=== PATIENT | male | born 1995 | race Caucasian/White ===

== ENCOUNTER 2017-04-30 10:18 | Emergency (ER) | payer OTHER ==
[~2017-04-30] VITALS: Ht 182.9 cm; Wt 145.1 kg
--- NOTE | 2017-04-30 12:09 | PHYS DOC ---
Past History Past Medical History: No Pertinent History Past Surgical History: No Surgical History Alcohol Use: None Drug Use: None Adult General Chief Complaint Chief Complaint: testicle PAIN HPI HPI Patient is a 21-year-old man who presented to the ED with right testicle pain which began about 30 minutes ago. Patient states he was doing fine, he got up this morning and was getting ready go to work when he developed sudden onset of severe pain in his right testicle. It was severe, it made him sweaty, he had nausea and vomiting. He pretty much came straight to the emergency department. He's never had this before. No history of hernia, no testicular surgery. He is in good general health. No chronic problems. Review of Systems Review of Systems Constitutional: Denies fever or chills [] HENT: Denies nasal congestion or sore throat [] Respiratory: Denies cough or shortness of breath [] GI: Denies abdominal pain, did have nausea and vomiting when the pain was severe as in history of present illness : Denies dysuria or hematuria [] Musculoskeletal: Denies back pain or joint pain [] Integument: Denies rash or skin lesions [] Allergies Allergies Allergies Coded Allergies Type Severity Reaction Last Updated Verified No Known Drug Allergies 04/30/17 No Physical Exam Physical Exam Constitutional: Well developed, well nourished, no acute distress, non-toxic appearance. Alert, mentating normally, ambulatory. HENT: Normocephalic, atraumatic, bilateral external ears normal, nose normal. [ ] Eyes: conjunctiva normal, no discharge. [] Neck: Normal range of motion, no stridor. [] Abdomen: Bowel sounds normal, soft, no tenderness, no masses, no pulsatile masses. : Normal circumcised male. Testes descended bilaterally. Right testicle normal size, nontender to palpation, consistency is normal. Epididymis is not enlarged or tender. Scrotum, left testicle unremarkable. Skin: Warm, dry, no erythema, no rash. [] Extremities: No tenderness, no cyanosis, no clubbing, ROM intact, no edema. [] Neurologic: Alert and oriented X 3, normal motor function, normal sensory function, no focal deficits noted. [] Current Patient Data Vital Signs Vital Signs Date Time Temp Pulse Resp B/P (MAP) Pulse Ox O2 Delivery O2 Flow Rate FiO2 04/30/17 10:25 98.3 66 18 97 Room Air EKG EKG [] Radiology/Procedures Radiology/Procedures Vascular Doppler and ultrasound of both testicles read by radiologist, no significant or acute abnormality noted, good blood flow bilaterally. [] Course & Med Decision Making Course & Med Decision Making Pertinent Labs and Imaging studies reviewed. (See chart for details) 21-year-old male presents with acute onset of severe pain in the right testicle 30 minutes prior to arrival which certainly sounded very suspicious for testicular torsion. After he was triaged by nursing staff, the patient got into a gown and laid back on the bed, and then by the time I got in the room just a few minutes later to see him, he told me that his pain had pretty much just gone away on its own. He said when he laid down and relaxed his pain went away. At this time I examined him and his exam is unremarkable. I did go ahead and order and wait for a ultrasound exam which was unremarkable for acute findings. I discussed with the patient that I'm very suspicious that he did have a testicular torsion which untorsed itself. I told him he needs to follow-up as soon as possible with urology to see what they might recommend, told him that sometimes they "tack down" at testicle or both testicles to prevent this from happening again. See instructions for plan. [] Dragon Disclaimer Dragon Disclaimer This chart was dictated in whole or in part using Voice Recognition software in a busy, high-work load, and often noisy Emergency Department environment. It may contain unintended and wholly unrecognized errors or omissions. Departure Departure: Impression: Primary Impression: Testicular torsion Disposition: 01 HOME, SELF-CARE Condition: IMPROVED Referrals: ENIO LEBLANC MD Patient Instructions: Testicular Torsion Additional Instructions: As we discussed, I believe you had an episode of testicular torsion, which went away by itself. If your symptoms return and last more than 5 or 10 minutes, return to emergency right away. When this happens, the blood flow to your testicle is cut off, and it must be taken care of right away or your testicle will from lack of blood flow. Because we do not have urology here at [facility], I recommend that you go to [facility] if you do have return of symptoms. On Tuesday, call for urology appointment. Often when this happens, they do recommend a procedure to "tack down" your testicle to keep it from happening again. EMILY LARA MD Apr 30, 2017 12:09
--- NOTE | 2017-04-30 12:47 | RAD ---
Indication episode of right sided testicular pain lasting 2 hours. That has now resolved. The left testicle measures 4.4 x 2.9 x 1.9 cm. There are multiple punctate foci of hyper echogenicity compatible with microlithiasis. There is normal flow to the testicle. There is no mass. A left-sided varicocele was noted. The left epididymis was not well demonstrated. The right testicle measures 4.3 x 2.9 x 1.9 cm. No mass is seen. Microlithiasis is again noted. There appears to be a small varicocele on the right. The right epididymis appeared unremarkable. The technologist performing the examination suggested possible varicocele on the right but this is not documented on the images IMPRESSION: Microlithiasis. Left varicocele and probable smaller right Normal blood flow to the testicles .
[2017-04-30 13:10] VITALS: BP 135/66
== END 2017-04-30 13:10 | disposition home or self-care (01) ==
LOC: ER 10:18
DX: N44.00 Torsion of testis, unspecified (principal)
CPT/HCPCS: 76870; 99284-25